=== PATIENT | female | born 1995 | race Caucasian/White ===

== ENCOUNTER 2017-04-19 20:09 | Emergency (ER) | payer OTHER ==
[~2017-04-19] VITALS: Ht 157.5 cm; Wt 100.0 kg
[~2017-04-19 20:09] MED LIST: NOCURR
[2017-04-19 22:15] VITALS: BP 132/81
== END 2017-04-19 22:47 | disposition home or self-care (01) ==
LOC: EMS 20:10
DX: J06.9 Acute upper respiratory infection, unspecified (principal); J02.8 Acute pharyngitis due to other specified organisms; B97.89 Other viral agents as the cause of diseases classified elsewhere
CPT/HCPCS: 81025; 87430; 99283

== ENCOUNTER 2017-08-28 14:09 | Emergency (ER) | payer OTHER ==
[~2017-08-28] VITALS: Ht 157.5 cm; Wt 100.0 kg
[2017-08-28 15:56] LABS: BASOPHILS % (AUTO) 0.1 % (0.0-2.0); EOSINOPHILS # (AUTO) 0.13 K/uL (0.00-0.70); EOSINOPHILS % (AUTO) 1.32 % (1.0-6.0); HEMATOCRIT 38.5 % (36-46); HEMOGLOBIN 12.7 g/dL (12.0-16.0); LYMPHOCYTES # (AUTO) 1.9 K/uL (1.0-4.8); LYMPHOCYTES % (AUTO) 19.8 % (22.0-44.0); MEAN CORPUSCULAR HEMOGLOBIN 27.6 pg (26.0-34.0); MEAN CORPUSCULAR VOLUME 84 fL (80-100); MONOCYTES # (AUTO) 0.3 K/uL (0.1-1.0); MONOCYTES % (AUTO) 3.3 % (2.0-9.0); NEUTROPHILS # (AUTO) 7.4 K/uL (1.8-7.7); NEUTROPHILS % (AUTO) 75.5 % (40.0-70.0); PLATELET COUNT (AUTO) 241 K/uL (150-450); RED BLOOD CELL COUNT(AUTO) 4.61 MIL/uL (4.00-5.20); RED CELL DISTRIBUTION WIDTH 14.7 % (11.5-14.5)
[2017-08-28] MEDS ORDERED: DICYCLOMINE HCL 20 MG TABLET PO ONE (16:00)
[2017-08-28 16:06] LABS: ANION GAP 6 mmol/L (8-16); CALCIUM, TOTAL 8.9 mg/dL (8.8-10.5); CARBON DIOXIDE 28 mmol/L (22-29); CHLORIDE 105 mmol/L (98-107); CREATININE 0.73 mg/dL (0.60-1.30); GLOMERULAR FILTR. RATE CALC > 60 mL/min (>60); GLUCOSE,RANDOM 136 mg/dL (70-110); POTASSIUM 3.7 mmol/L (3.5-5.1); SODIUM SERUM 139 mmol/L (136-145); UREA NITROGEN, BLOOD 7 mg/dL (7-18)
[2017-08-28 16:13] LABS: ALANINE AMINOTRANSFERASE 50 U/L (12-78); ALBUMIN 3.6 g/dL (3.4-5.0); ALKALINE PHOSPHATASE 49 U/L (46-116); ASPARTATE AMINOTRANSFERASE 28 U/L (15-37); BILIRUBIN,TOTAL 0.2 mg/dL (0.1-1.0); LIPASE 160 U/L (73-393)
[2017-08-28 16:41] LABS: APPEARANCE,URINE CLOUDY (CLEAR); BILIRUBIN,URINE NEGATIVE (NEGATIVE); GLUCOSE, URINE (UA) NEGATIVE (NEGATIVE); KETONES,URINE NEGATIVE (NEGATIVE); LEUKOCYTE ESTERASE ,URINE MODERATE (NEGATIVE); NITRATE,URINE NEGATIVE (NEGATIVE); OCCULT BLOOD,URINE MODERATE (NEGATIVE); PROTEIN,URINE NEGATIVE (NEGATIVE)
[2017-08-28 16:45] LABS: BACTERIA,URINE Few /HPF (None Seen); RBC,URINE 0-2 /HPF (0-2); SQUAMOUS EPITHELIAL CELL,UR Few /LPF (None Seen)
[2017-08-28 17:10] VITALS: BP 128/69
== END 2017-08-28 17:17 | disposition home or self-care (01) ==
LOC: EMS 14:10
DX: R10.33 Periumbilical pain (principal); N39.0 Urinary tract infection, site not specified
CPT/HCPCS: 87086; 99284

== ENCOUNTER 2018-04-18 19:32 | Emergency (ER) | payer OTHER ==
[~2018-04-18] VITALS: Ht 157.5 cm; Wt 100.0 kg
[2018-04-18] MEDS ORDERED: METF500T6 PO (19:43)
[2018-04-18 19:48] LABS: GLUCOSE,POINT OF CARE 182 MG/DL (70-110)
[2018-04-18] MEDS ORDERED: HYDROGEN PEROXIDE 118 ML SOLUTION TP ONE (20:15)
[2018-04-18 21:38] VITALS: BP 140/82
== END 2018-04-18 21:54 | disposition home or self-care (01) ==
LOC: EMS 19:33
DX: H61.21 Impacted cerumen, right ear (principal); E11.9 Type 2 diabetes mellitus without complications; Z79.84 Long term (current) use of oral hypoglycemic drugs
CPT/HCPCS: 69209; 99283

== ENCOUNTER 2018-04-22 20:30 | Emergency (ER) | payer OTHER ==
[~2018-04-22] VITALS: Ht 157.5 cm; Wt 100.0 kg
[~2018-04-22 20:30] MED LIST changes: +METF500T6 PO; -NOCURR
[2018-04-22 20:49] LABS: GLUCOSE,POINT OF CARE 121 MG/DL (70-110)
[2018-04-22] MEDS ORDERED: UNK ABX PO (20:49)
[2018-04-22 22:23] VITALS: BP 132/76
== END 2018-04-22 22:27 | disposition home or self-care (01) ==
LOC: EMS 20:31
DX: J02.9 Acute pharyngitis, unspecified (principal); R05 Cough; E11.9 Type 2 diabetes mellitus without complications; Z79.84 Long term (current) use of oral hypoglycemic drugs
CPT/HCPCS: 87430; 99283

== ENCOUNTER 2018-12-23 16:34 | Emergency (ER) | payer OTHER ==
[~2018-12-23] VITALS: Ht 157.5 cm; Wt 100.0 kg
[~2018-12-23 16:34] MED LIST changes: +METF-960 PO; -METF500T6 PO; +UNK ABX PO
[2018-12-23 17:05] LABS: GLUCOSE,POINT OF CARE 101 MG/DL (70-110)
[2018-12-23 17:19] LABS: BASOPHILS % (AUTO) 0.9 % (0.0-2.0); EOSINOPHILS % (AUTO) 1.2 % (1.0-6.0); HEMATOCRIT 39.7 % (36-46); HEMOGLOBIN 12.9 g/dL (12.0-16.0); LYMPHOCYTES % (AUTO) 16.3 % (22.0-44.0); MEAN CORPUSCULAR HEMOGLOBIN 27.5 pg (26.0-34.0); MEAN CORPUSCULAR HGB CONC 32.5 G/dL (31.0-37.0); MEAN CORPUSCULAR VOLUME 85 fL (80-100); MONOCYTES # (AUTO) 0.6 K/uL (0.1-1.0); NEUTROPHILS # (AUTO) 9.2 K/uL (1.8-7.7); NEUTROPHILS % (AUTO) 76.6 % (40.0-70.0); PLATELET COUNT (AUTO) 273 K/uL (150-450); RED BLOOD CELL COUNT(AUTO) 4.68 MIL/uL (4.00-5.20); RED CELL DISTRIBUTION WIDTH 12.9 % (11.5-14.5)
[2018-12-23 17:31] LABS: ANION GAP 10 mmol/L (8-16); CALCIUM, TOTAL 9.3 mg/dL (8.8-10.5); CARBON DIOXIDE 27 mmol/L (22-29); CHLORIDE 101 mmol/L (98-107); CREATININE 0.58 mg/dL (0.60-1.30); GLOMERULAR FILTR. RATE CALC > 60 mL/min (>60); GLUCOSE,RANDOM 101 mg/dL (70-110); SODIUM SERUM 138 mmol/L (136-145); UREA NITROGEN, BLOOD 6 mg/dL (7-18)
[2018-12-23 17:36] LABS: ALANINE AMINOTRANSFERASE 27 U/L (12-78); ALBUMIN 3.8 g/dL (3.4-5.0); ALKALINE PHOSPHATASE 57 U/L (46-116); ASPARTATE AMINOTRANSFERASE 16 U/L (15-37); BILIRUBIN,TOTAL 0.4 mg/dL (0.1-1.0); LIPASE 83 U/L (73-393); TOTAL PROTEIN, SERUM 8.2 g/dL (6.4-8.2)
[2018-12-23] MEDS ORDERED: ACETAMINOPHEN 325 MG TABLET PO ONE (18:00)
[2018-12-23 18:07] LABS: APPEARANCE,URINE CLEAR (CLEAR); BILIRUBIN,URINE NEGATIVE (NEGATIVE); GLUCOSE, URINE (UA) NEGATIVE (NEGATIVE); KETONES,URINE NEGATIVE (NEGATIVE); LEUKOCYTE ESTERASE ,URINE SMALL (NEGATIVE); NITRATE,URINE NEGATIVE (NEGATIVE); OCCULT BLOOD,URINE NEGATIVE (NEGATIVE); PROTEIN,URINE NEGATIVE (NEGATIVE); UROBILINOGEN,URINE 0.2 mg/dL (<=1.0)
[2018-12-23 18:24] LABS: BACTERIA,URINE Rare /HPF (None Seen); RBC,URINE 0-2 /HPF (0-2); SQUAMOUS EPITHELIAL CELL,UR Rare /LPF (None Seen)
[2018-12-23 19:24] LABS: HCG,QUANTITATIVE < 1 mIU/mL (0-6)
[2018-12-23] MEDS ORDERED: SODIUM CHLORIDE 0.9% 1,000 ML IV ONE (21:00)
[2018-12-23] MEDS ORDERED: ONDANSETRON HCL 4 MG/2 ML VIAL IVP ONE ×2 (21:00→23:45)
[2018-12-23] MEDS ORDERED: MORPHINE SULFATE 4 MG/ML SYRINGE IVP ONE ×2 (21:00→23:45)
[2018-12-23] MEDS ORDERED: CIPROFLOXACIN 400 MG/D5% WATER 200 ML IV ONE (23:45)
[2018-12-23] MEDS ORDERED: MetroNIDAZOLE 250 MG TABLET PO ONE (23:45)
[2018-12-24] MEDS ORDERED: KETOROLAC TROMETHAMINE 30 MG/ML VIAL IVP ONE (01:30)
[2018-12-24 02:02] VITALS: BP 105/60
[2018-12-26] MEDS ORDERED: CIPR500S5 PO (23:10)
[2018-12-26] MEDS ORDERED: METR-172 PO (23:10)
[2018-12-26] MEDS ORDERED: IBUP-2077 PO (23:11)
[2018-12-26] MEDS ORDERED: HYDR-4061 PO (23:14)
== END 2018-12-24 02:07 | disposition home or self-care (01) ==
LOC: EMS 16:34
DX: K57.92 Diverticulitis of intestine, part unspecified, without perforation or abscess without bleeding (principal); N83.292 Other ovarian cyst, left side; E11.9 Type 2 diabetes mellitus without complications; Z79.84 Long term (current) use of oral hypoglycemic drugs
CPT/HCPCS: 36415; 74176; 76856; 80053; 81001; 82962; 83690; 84484; 84702; 85025; 93005; 96361; 96365; 96375; 96376; 99284; J0744; J1885; J2270; J2405; J7030